=== PATIENT | male | born 1995 | race Caucasian/White ===

== ENCOUNTER 2022-09-02 18:51 | Emergency (ER) | payer OTHER ==
[2022-09-02 19:19] VITALS: BP 110/65; PULSE 89; RESP 16; TEMP 98.4; BMI 26.6
== END 2022-09-02 20:46 | disposition left against medical advice (07) ==
LOC: JERFT 18:51
DX: R07.9 Chest pain, unspecified (principal)
CPT/HCPCS: 93005; 93010; 99283-25